=== PATIENT | male | born 1985 | race Caucasian/White ===

== ENCOUNTER 2025-02-19 08:03 | Outpatient (CLI) | payer BC ==
[2025-02-19 09:55] LABS: #Basophils 0.03 10x3/uL (0.0-0.2); #Eosinophils 0.09 10x3/uL (0.0-0.7); #Monocytes 0.34 10x3/uL (0.11-0.59); #Neutrophils 2.27 10x3/uL (1.40-6.50); %Basophils 0.6 % (0.0-1.0); %Eosinophils 1.7 % (0.0-10.0); %Lymphocytes 46.7 % (21.0-51.0); %Monocytes 6.6 % (0.0-10.0); %Neutrophils 44.0 % (42.0-75.0); Hematocrit 43.1 % (42.0-52.0); Hemoglobin 15.3 g/dL (14.0-18.0); Mean Corpuscular Hemoglobin 30.1 pg (27.0-31.0); Mean Corpuscular Volume 84.8 fL (78.0-98.0); Platelet Count 279 10x3/uL (130-400); Red Blood Cell (RBC) Count 5.08 mill/uL (4.70-6.10); White Blood Cell (WBC) Count 5.16 10x3/uL (4.8-10.8)
[2025-02-19 10:17] LABS: Anion Gap 13 mmol/L (10-20); BUN (Urea Nitrogen) 14 mg/dL (8.9-20.6); Calc. Creatinine Clearance 0 mL/min (70-130); Calcium 9.5 mg/dL (7.8-10.44); Carbon Dioxide 23 mmol/L (22-29); Chloride 108 mmol/L (98-107); Glucose 106 mg/dL (70-105); Potassium 4.1 mmol/L (3.5-5.1); Sodium 140 mmol/L (136-145)
== END 2025-02-19 08:04 | disposition home or self-care (01) ==
LOC: LABBT 08:03
PROVIDERS: ATTEND Orthopaedic Surgery
DX: Z01.812 Encounter for preprocedural laboratory examination (principal); S46.212A Strain of muscle, fascia and tendon of other parts of biceps, left arm, initial encounter
CPT/HCPCS: 80048; 85025

== ENCOUNTER 2025-02-23 07:16 | Day surgery (SDC) | payer BC ==
[2025-02-19 08:19] VITALS: BMI 30.5
[2025-02-23] MEDS ORDERED: Lidocaine 1% (PF) 30 ML VIAL ONE (08:02)
[2025-02-23] MEDS ORDERED: Ropivacaine 0.5% HCl/PF (150 MG/30 ML VIAL) ONE (08:02)
[2025-02-23] MEDS ORDERED: PROPOFOL 200 MG/20 ML VIAL ONE (08:40)
[2025-02-23] MEDS ORDERED: Ondansetron PF 4 MG/2 ML Vial ONE (08:53)
== END 2025-02-23 11:34 | disposition home or self-care (01) ==
LOC: SDC 07:16
PROVIDERS: ATTEND Orthopaedic Surgery
PROC: 3E0T3BZ Introduction of Anesthetic Agent into Peripheral Nerves and Plexi, Percutaneous Approach (ICD-10-PCS; principal; 2025-02-23)
PROC: 0LM40ZZ Reattachment of Left Upper Arm Tendon, Open Approach (ICD-10-PCS; principal; 2025-02-23)
DX: S46.212A Strain of muscle, fascia and tendon of other parts of biceps, left arm, initial encounter (principal); I10 Essential (primary) hypertension; E78.5 Hyperlipidemia, unspecified; Z79.899 Other long term (current) drug therapy; X50.0XXA Overexertion from strenuous movement or load, initial encounter
CPT/HCPCS: A6223; C1713; J0169; J1100; J2003; J2250; J2405; J2704; J2795; J3010